=== PATIENT | female | born 1990 | race Asian ===

== ENCOUNTER 2017-03-12 17:21 | Day surgery (SDC) | payer OTHER ==
[2017-03-12] MEDS ORDERED: OXYTOCIN 10 UNITS/ML, 1ML ONE (18:39)
[2017-03-12] MEDS ORDERED: SILVER NITRATE STICK TP ONE (18:40)
[2017-03-12] MEDS ORDERED: METHYLERGONOVINE 0.2 MG/ML IM ONE (18:40)
[2017-03-12] MEDS ORDERED: MISOPROSTOL 200 MCG TABLET ONE (18:40)
[2017-03-12] MEDS ORDERED: FENTANYL PF 100 MCG/2ML ONE (19:00)
[2017-03-12] MEDS ORDERED: METOCLOPRAMIDE 5 MG/ML, 2ML ONE (19:09)
[2017-03-12] MEDS ORDERED: DEXAMETHASONE 4 MG/ML, 1ML ONE (19:09)
[2017-03-12] MEDS ORDERED: ONDANSETRON 2MG/ML, 2ML ONE (19:09)
[2017-03-12] MEDS ORDERED: PROPOFOL 10 MG/ML, 20ML ONE (19:09)
[2017-03-12] MEDS ORDERED: OXYcodone 5 MG/5 ML ORAL.SOL UDC ONE (19:58)
[2017-03-12] MEDS ORDERED: OXYcodone 5 MG/5 ML ORAL.SOL UDC PO PRN (20:00)
[2017-03-12] MEDS ORDERED: PROMETHAZINE 25 MG/ML, 1ML IV PRN (20:00)
[2017-03-12] MEDS ORDERED: PLEASE ENTER HEIGHT AND WEIGHT MC SCH (20:00)
[2017-03-12] MEDS ORDERED: MEPERIDINE/PF 25MG/0.5ML IVPush PRN (20:00)
[2017-03-12] MEDS ORDERED: FENTANYL PF 100 MCG/2ML IV PRN ×2 (20:00→23:00)
[2017-03-12] MEDS ORDERED: ONDANSETRON 2MG/ML, 2ML IVPush PRN (20:00)
[2017-03-12] MEDS ORDERED: HYDROmorphone 1 MG/ML, 1ML IV PRN (20:00)
[2017-03-12] MEDS ORDERED: PLEASE ENTER ALLERGIES MC SCH ×2 (20:00)
[2017-03-12] MEDS ORDERED: MIDAZOLAM 1 MG/ML, 2ML IV PRN (20:00)
[2017-03-12] MEDS ORDERED: OXYC-302 PO (22:05)
[2017-03-12] MEDS ORDERED: IBUP-1222 PO (22:05)
[2017-03-12] MEDS ORDERED: OXYcodone/APAP 5/325MG TABLET PO PRN (23:00)
[2017-03-12] MEDS ORDERED: ONDANSETRON 2MG/ML, 2ML IV PRN (23:00)
== END 2017-03-12 23:15 | disposition home or self-care (01) ==
LOC: OR 17:21 → 4NOR 17:53 → OR 23:15
PROVIDERS: ATTEND Obstetrics & Gynecology
DX: O02.1 Missed abortion (principal); Z3A.08 8 weeks gestation of pregnancy; Z83.3 Family history of diabetes mellitus; Z88.8 Allergy status to other drugs, medicaments and biological substances
CPT/HCPCS: 36415; 59820; 85025; 86850; 86900; 88305; J1100; J2210; J2405; J2704; J2765; J3010; J2590